=== PATIENT | male | born 1960 | race Two or more races ===

== ENCOUNTER 2017-01-21 16:47 | Emergency (ER) | payer BC, OTHER ==
[2017-01-21 16:54] VITALS: BP 133/83; PULSE 73; TEMP 97.6; BMI 28.1
--- NOTE | 2017-01-21 17:15 | PDOC ---
History of Present Illness - General Chief Complaint: Laceration Stated Complaint: LACERATION Time Seen by Provider: 01/21/17 17:00 History Source: Patient Exam Limitations: No Limitations - History of Present Illness Initial Comments: CHIEF COMPLAINT: 56 y/o afebrile male with no significant PMH here for laceration to face. HISTORY OF PRESENT ILLNESS: The patient states a piece of metal with a nail in it fell onto his face at work, scraping the area to the right of his right eye. He does not think he is UTD on tetanus. He denies LOC, GARCIA, neck pain, changes in vision/hearing, sensation of FB in eye, n/v/d, and all other symptoms. He states he did not clean the wound prior to coming to the ER. Vital signs on arrival are within normal limits. REVIEW OF SYSTEMS: GENERAL/CONSTITUTIONAL: No fever/chills. No weakness. No weight change. HEAD, EYES, EARS, NOSE AND THROAT: No change in vision. No ear pain or discharge. No sore throat. CARDIOVASCULAR: No chest pain or shortness of breath. RESPIRATORY: No cough, wheezing, or hemoptysis. GASTROINTESTINAL: No abd pain, nausea, vomiting, diarrhea. GENITOURINARY: No dysuria, frequency, or change in urination. MUSCULOSKELETAL: No joint or muscle swelling or pain. No neck or back pain. SKIN: +laceration to right side of face. NEUROLOGIC: No headache, vertigo, loss of consciousness, or loss of sensation. PHYSICAL EXAM: GENERAL: The patient is awake, alert, and fully oriented, in no acute distress. He is well appearing and ambulatory. HEAD: Normal with no signs of trauma. no hematomas. NECK: No midline cervical spine TTP or step offs. EYES: Pupils equal, round and reactive to light, extraocular movements intact, sclera anicteric, conjunctiva clear. lateral infraorbital region of right eye with moderate edema. No proptosis or ptosis. No crepitus or TTP of right orbit. EXTREMITIES: Normal range of motion, no edema. NEUROLOGICAL: Normal speech, normal gait. PSYCH: Normal mood, normal affect. SKIN: 2 very superficial, linear abrasions to right face, just lateral to right eye. The more inferior abrasion is closed with margins together. THe more superior abrasion is about 1cm in length and very superficial with well approximated margins. Past History - Past Medical History Allergies/Adverse Reactions: Allergies Allergy/AdvReac Type Severity Reaction Status Date / Time No Known Allergies Allergy Verified 01/21/17 16:51 - Psycho/Social/Smoking Cessation Hx Anxiety: No Suicidal Ideation: No Smoking History: Never smoked Have you smoked in the past 12 months: No Information on smoking cessation initiated: No Hx Alcohol Use: No Drug/Substance Use Hx: No Substance Use Type: None *Physical Exam - Vital Signs Last Vital Signs Temp Pulse Resp BP Pulse Ox 97.6 F 73 18 133/83 100 01/21/17 16:51 01/21/17 16:51 01/21/17 16:51 01/21/17 16:51 01/21/17 16:51 Procedures - Laceration/Wound Repair Right Face Wound Length: to 2.5 cm Wound Explored: clean Wound's Depth, Shape: superficial, linear Irrigated w/ Saline: Yes Wound Repaired With: Dermabond Medical Decision Making - Medical Decision Making A/P: 56 y/o male with 2 superficial abrasions to right side of face after being scraped with metal at work. Only the most superficial abrasion needs to be closed and can be dermabonded. Used dermabond to close wound. Gave Tetanus immunization. Instructed the patient his immunization is good for 10 years. Instructed him to avoid putting any oils or moisturizers on glued region. Suggested ice to his affected face and return to the ER with any worsening or concerning symptoms. The patient verbalizes understanding of all instructions, has no further questions and is awaiting discharge. *DC/Admit/Observation/Transfer Diagnosis at time of Disposition: Abrasion, Laceration - Discharge Dispostion Disposition: HOME Condition at time of disposition: Improved - Patient Instructions Printed Discharge Instructions: DI for Laceration Repair With Dermabond Additional Instructions: Discharge Instructions: -You received a tetanus shot today; it is good for 10 years -Apply ice to the affected area to help with swelling -Do not apply moisturizers or oil to glued region -Return to the ER with any worsening or concerning symptoms Print Language: AR[place]
[2017-01-21] MEDS ORDERED: DIPHTH,PERTUSS(ACELL),TET 0.5 ML DISP.SYRIN IM ONE (17:45)
== END 2017-01-21 17:49 | disposition home or self-care (01) ==
LOC: JERFT 16:47
PROC: 0HQ1XZZ Repair Face Skin, External Approach (ICD-10-PCS; principal; 2017-01-21)
PROC: 3E0234Z Introduction of Serum, Toxoid and Vaccine into Muscle, Percutaneous Approach (ICD-10-PCS; 2017-01-21)
DX: S01.111A Laceration without foreign body of right eyelid and periocular area, initial encounter (principal); S00.211A Abrasion of right eyelid and periocular area, initial encounter; W26.8XXA Contact with other sharp object(s), not elsewhere classified, initial encounter; Y93.89 Activity, other specified; Y92.29 Other specified public building as the place of occurrence of the external cause; Y99.0 Civilian activity done for income or pay
CPT/HCPCS: 90715; 99281-25